=== PATIENT | male | born 1980 | race Caucasian/White ===

== ENCOUNTER 2023-04-28 07:53 | Emergency (ER) | payer OTHER ==
[~2023-04-28] VITALS: Ht 170.2 cm; Wt 83.0 kg
== END 2023-04-28 12:46 | disposition home or self-care (01) ==
LOC: ER 07:53
DX: S52.121A Displaced fracture of head of right radius, initial encounter for closed fracture (principal); S50.01XA Contusion of right elbow, initial encounter; W19.XXXA Unspecified fall, initial encounter; Y93.9 Activity, unspecified; Y92.9 Unspecified place or not applicable; Y99.9 Unspecified external cause status; Z88.0 Allergy status to penicillin